=== PATIENT | male | born 1965 | race Caucasian/White ===

== ENCOUNTER → 2024-08-04 16:23 | Outpatient (REF) | payer MEDICARE, BC, SELFPAY | LOC: PAVMRI 16:23 | PROVIDERS: ATTENDING PHYSICIAN Specialist; FAMILY PHYSICIAN Internal Medicine | DX: M54.12 Radiculopathy, cervical region (principal) | CPT/HCPCS: 72141 ==

== ENCOUNTER 2025-06-14 10:56 | Outpatient (RCR) | payer MEDICARE, BC, SELFPAY | END 2025-06-14 23:59 | disposition home or self-care (01) | LOC: RST 10:56 | PROVIDERS: ATTENDING PHYSICIAN Psychiatry & Neurology Neurology | DX: G20.A1 Parkinson's disease without dyskinesia, without mention of fluctuations (principal); R13.12 Dysphagia, oropharyngeal phase; Z73.6 Limitation of activities due to disability; R49.0 Dysphonia | CPT/HCPCS: 92524; 92526; 92610 ==

== ENCOUNTER 2025-07-19 12:54 | Outpatient (RCR) | payer MEDICARE, BC, SELFPAY | END 2025-07-19 23:59 | disposition home or self-care (01) | LOC: RST 12:54 | PROVIDERS: ATTENDING PHYSICIAN Psychiatry & Neurology Neurology | DX: G20.A1 Parkinson's disease without dyskinesia, without mention of fluctuations (principal); R13.12 Dysphagia, oropharyngeal phase; Z73.6 Limitation of activities due to disability; R49.0 Dysphonia | CPT/HCPCS: 92507; 92526 ==

== ENCOUNTER → 2025-07-24 09:36 | Outpatient (REF) | payer MEDICARE, BC, SELFPAY | LOC: RST 09:36 | PROVIDERS: ATTENDING PHYSICIAN Internal Medicine; OTHER PHYSICIAN Psychiatry & Neurology Neurology | DX: R13.12 Dysphagia, oropharyngeal phase (principal); G20.A1 Parkinson's disease without dyskinesia, without mention of fluctuations | CPT/HCPCS: 74230; 92611 ==

== ENCOUNTER 2025-08-09 10:30 | Outpatient (RCR) | payer MEDICARE, BC, SELFPAY | END 2025-08-09 23:59 | disposition home or self-care (01) | LOC: RST 10:30 | PROVIDERS: ATTENDING PHYSICIAN Psychiatry & Neurology Neurology | DX: G20.A1 Parkinson's disease without dyskinesia, without mention of fluctuations (principal); R13.12 Dysphagia, oropharyngeal phase; Z73.6 Limitation of activities due to disability; R49.0 Dysphonia; R47.1 Dysarthria and anarthria | CPT/HCPCS: 92507; 92526 ==

== ENCOUNTER 2025-09-18 08:27 | Outpatient (RCR) | payer MEDICARE, BC, SELFPAY | END 2025-09-18 11:12 | disposition home or self-care (01) | LOC: RST 08:27 | PROVIDERS: ATTENDING PHYSICIAN Psychiatry & Neurology Neurology | DX: G20.A1 Parkinson's disease without dyskinesia, without mention of fluctuations (principal); R13.12 Dysphagia, oropharyngeal phase; Z73.6 Limitation of activities due to disability; R49.0 Dysphonia; R47.1 Dysarthria and anarthria | CPT/HCPCS: 92507; 92526 ==